=== PATIENT | female | born 1995 | race American Indian/Alaskan Native ===

== ENCOUNTER 2016-07-24 20:16 | Outpatient (CLI) | payer MEDICAID ==
[2016-07-24 20:37] VITALS: BP 134/86
[2016-07-24] MEDS ORDERED: LACTATED RINGERS 1,000 ML IV ONE (20:43)
[2016-07-24 21:48] LABS: Bilirubin,Urine NEG (Negative); Blood,Urine NEG (Negative); Ketones,Urine NEG (Negative); Leukocyte Esterase,Urine NEG (Negative); Mucus,Urine 3+ /HPF; Nitrite,Urine NEG (Negative); Protein,Urine <15 mg/dL mg/dL (Negative); Urobilinogen,Urine < 2.0 mg/dL (<2.0); WBC,Urine < 1.0 /HPF (0.0-6.0)
[2016-07-24] MEDS: BRETHINE SUB-Q SCH ×3 (22:15→23:15)
--- NOTE | 2016-07-25 07:28 | Ultrasound Report ---
OB LIMITED History: Abdominal pain after fall, evaluate for abruption. Technique: Transabdominal ultrasound with Doppler interrogation. Gestation: Single Placenta: Anterior Placental Grade: 1 Heart Rate: 121 BPM Comment: There is no evidence for abruption.
== END 2016-07-24 23:45 | disposition home or self-care (01) ==
LOC: TRG 20:16
PROVIDERS: ATTEND Obstetrics & Gynecology
DX: O26.899 Other specified pregnancy related conditions, unspecified trimester (principal); R10.9 Unspecified abdominal pain; O47.9 False labor, unspecified; Z91.81 History of falling; Z3A.00 Weeks of gestation of pregnancy not specified
CPT/HCPCS: 76815; 81001; J3105; J7120; 96360; 96372

== ENCOUNTER 2016-09-01 17:37 | Outpatient (CLI) | payer MEDICAID ==
[2016-09-01 17:59] VITALS: BP 108/64
[2016-09-01 18:40] LABS: Bilirubin,Urine NEG (Negative); Blood,Urine SM (Negative); Ketones,Urine NEG (Negative); Leukocyte Esterase,Urine NEG (Negative); Mucus,Urine FEW /HPF; Nitrite,Urine NEG (Negative); Protein,Urine <15 mg/dL mg/dL (Negative); Urobilinogen,Urine < 2.0 mg/dL (<2.0)
[2016-09-01] MEDS ORDERED: LACTATED RINGERS 1,000 ML IV SCH (19:00)
[2016-09-01] MEDS ORDERED: LACTATED RINGERS 500 ML IV ONE (19:00)
[2016-09-01] MEDS ORDERED: BRETHINE SUB-Q ONE (20:22)
--- NOTE | 2016-09-03 13:21 | Ultrasound Report ---
BIOPHYSICAL PROFILE: Technique: Transabdominal ultrasound with Doppler interrogation. 2 - breathing movements 2 - movements 2 - posture and tone 2 - Qualitative amniotic fluid volume 8 - TOTAL SCORE OF POSSIBLE 8 Heart Rate (bpm) 126
--- NOTE | 2016-09-03 13:22 | Ultrasound Report ---
OB LIMITED Technique: Transabdominal ultrasound with Doppler interrogation. Gestation: Single Position: Cephalic Placenta: Anterior Placental Grade: 0 Heart Rate: 126 BPM Cervical length: 2.8 cm (Normal > 3 cm)
== END 2016-09-01 21:00 | disposition home or self-care (01) ==
LOC: TRG 17:37
PROVIDERS: ATTEND Obstetrics & Gynecology
DX: O47.03 False labor before 37 completed weeks of gestation, third trimester (principal); Z3A.33 33 weeks gestation of pregnancy
CPT/HCPCS: 36415; 76815; 76819; 81001; 82731; 87086; 96360; 96361; 96372; J3105; J7120

== ENCOUNTER 2016-09-27 11:31 | Outpatient (CLI) | payer MEDICAID ==
[2016-09-27 11:46] VITALS: BP 104/68
== END 2016-09-27 12:23 | disposition home or self-care (01) ==
LOC: TRG 11:31
PROVIDERS: ATTEND Obstetrics & Gynecology
DX: O47.1 False labor at or after 37 completed weeks of gestation (principal); Z3A.37 37 weeks gestation of pregnancy

== ENCOUNTER 2016-10-01 21:02 | Outpatient (CLI) | payer MEDICAID ==
[2016-10-01 21:35] VITALS: BP 113/75
[2016-10-01] MEDS ORDERED: LACTATED RINGERS 1,000 ML IV ONE (21:49)
[2016-10-01 23:01] LABS: Bacteria,Urine 1+ /HPF (Negative); Bilirubin,Urine NEG (Negative); Blood,Urine NEG (Negative); Ketones,Urine NEG (Negative); Leukocyte Esterase,Urine TR (Negative); Mucus,Urine FEW /HPF; Nitrite,Urine NEG (Negative); Protein,Urine <15 mg/dL mg/dL (Negative); Urobilinogen,Urine < 2.0 mg/dL (<2.0); WBC,Urine < 1.0 /HPF (0.0-6.0)
[2016-10-02] MEDS ORDERED: VISTARIL PO ONE (00:15)
== END 2016-10-02 01:05 | disposition home or self-care (01) ==
LOC: TRG 21:02
PROVIDERS: ATTEND Obstetrics & Gynecology
DX: O47.1 False labor at or after 37 completed weeks of gestation (principal); Z3A.37 37 weeks gestation of pregnancy
CPT/HCPCS: 81001; 96360; J7120; Q0177

== ENCOUNTER 2016-10-02 12:43 | Inpatient (IN) | payer MEDICAID ==
[2016-10-02] MEDS ORDERED: LACTATED RINGERS 1,000 ML ONE (13:25)
--- NOTE | 2016-10-02 13:37 | History and Physical Report ---
History of Present Illness Date of examination: 10/02/16 Date of admission: 10/02/16 12:43 Chief complaint: Oligohydramnios, SHREYA 4.4 today History of present illness: 21yo at 38 weeks presents as a direct admission for oligohydramnios with SHREYA of 4.4 today and a BPP of 6/8. Pt is a [employer] since she transferred in at 21.4 weeks. COurse complicated by an abnormal 1 hr gtt of 156 followed by a 3 hr test that was WNL. She also has mild, asymptomatic anemia of 10.6. Past History Past Medical History: other (anxiety and depression) Past Surgical History: no surgical history [employer] SOFTWARE [employer] History: chlamydia Family/Genetic History: diabetes, other (Hyperthyroidism, Physchiatric disorder and Obesity) Social history: single. denies: smoking, alcohol abuse, prescription drug abuse , IV drug use - Obstetrical History Expected Date of Delivery: 10/16/16 Actual Gestation: 38 Week(s) 0 Day(s) : 2 Para: 1 Hx # Term Pregnancies: 1 Number of Pregnancies: 0 Spontaneous Abortions: 0 Induced : 0 Number of Living Children: 1 #1 Gender: Male year: 0[birth year] Birthweight: 6 lb 9 oz Method of Delivery: Vaginal Gestational age at delivery: 39 Complications: none Medications and Allergies Allergies Allergy/AdvReac Type Severity Reaction Status Date / Time No Known Allergies Allergy Verified 09/01/16 18:03 Home Medications Medication Instructions Recorded Confirmed Last Taken Type No Known Home Medications [No 09/01/16 10/01/16 Unknown History Reported Home Medications] Review of Systems All systems: negative - Vital Signs Vital signs: Vital Signs Pulse BP 105 H 122/76 10/02/16 13:13 10/02/16 13:13 Temp Pulse Resp BP Pulse Ox 105 H 122/76 10/02/16 13:13 10/02/16 13:13 - Physical Exam Cardiovascular: Regular rate Lungs: Positive: Normal air movement Vagina: Positive: normal moisture Extremities: Positive: normal Deep Tendon Reflex Grade: Normal +2 - Obstetrical FHR: category 1 FHR comments: FHR 125 Uterine Contraction Monitor Mode: External Cervical Dilatation: 3 (in office) Cervical Effacement Percentage: 70 station: -2 Uterine Contraction Pattern: Regular Uterine Tone Measurement Phase: Resting Uterine Contraction Intensity: Moderate Results All other labs normal. Assessment and Plan A: 21yo at 38 weeks Oligohydramnios, SHREYA 4.4 BPP 6/8 Category 1 FHT GBS negative P: Admit to L&D of IOL Continuous monitoring Start pitocin induction Epidural /pain medication as desired
[2016-10-02] MEDS ORDERED: BRETHINE IVP PRN (13:42)
[2016-10-02] MEDS ORDERED: MINERAL OIL PO PRN (13:42)
[2016-10-02] MEDS ORDERED: PHENERGAN PO PRN ×2 (13:42→17:39)
[2016-10-02] MEDS ORDERED: XYLOCAINE 2% INFILTRATI ONE (13:42)
[2016-10-02] MEDS ORDERED: SUBLIMAZE IV PRN (13:42)
[2016-10-02] MEDS ORDERED: ZOFRAN IV PRN ×2 (13:42→17:39)
[2016-10-02] MEDS ORDERED: ePHEDrine SULFATE IV PRN (13:42)
[2016-10-02] MEDS ORDERED: BRETHINE SUB-Q PRN (13:42)
[2016-10-02] MEDS ORDERED: STADOL IV PRN (13:42)
[2016-10-02] MEDS ORDERED: PITOCin/NS 30 UNIT/500ML 30 UNITS/500 ML BAG IV SCH ×2 (14:00)
[2016-10-02] MEDS ORDERED: PITOCin/NS 20 UNIT/1000ML DRIP 20 UNITS/1,000 ML BAG IV SCH ×2 (14:00→18:00)
[2016-10-02] MEDS ORDERED: LACTATED RINGERS 1,000 ML IV SCH (14:00)
[2016-10-02 14:30] LABS: Hematocrit 31.7 % (30.3-42.9); Hemoglobin 10.7 gm/dl (10.1-14.3); Mean Corpuscular HGB Conc 34 % (30-34); Mean Corpuscular Hemoglobin 28 pg (28-32); Mean Corpuscular Volume 83 fl (79-97); Platelet Count 275 K/mm3 (140-440); Red Blood Count 3.83 M/mm3 (3.65-5.03); White Blood Count 8.8 K/mm3 (4.5-11.0)
--- NOTE | 2016-10-02 17:36 | Procedure Note ---
OB Delivery Note - Delivery Date of Delivery: 10/02/16 Surgeon: DEBBI GONZALES Estimated blood loss: 100cc - Vaginal Delivery presentation: vertex Delivery position: OA Intrapartum events: hydramnios Delivery induction: oxytocin Delivery augmentation: pitocin Delivery monitor: external FHT, external uterine Route of delivery: Delivery placenta: spontaneous Delivery cord: nuchal cord (x1) Delivery laceration: none Anesthesia: none Delivery comments: Cord cut on by Mom after 2 mins of [id number] and spontaneous delivery of placenta. - A at 1 minute: 8 at 5 minutes: 9 Infant Gender: Male (2492gms)
[2016-10-02] MEDS ORDERED: BENADRYL PO PRN (17:39)
[2016-10-02] MEDS ORDERED: DERMOPLAST TP PRN (17:39)
[2016-10-02] MEDS ORDERED: DULCOLAX PR PRN (17:39)
[2016-10-02] MEDS ORDERED: TYLENOL PO PRN (17:39)
[2016-10-02] MEDS ORDERED: LANSINOH TP PRN (17:39)
[2016-10-02] MEDS ORDERED: PHENERGAN PR PRN (17:39)
[2016-10-02] MEDS ORDERED: TUCKS PAD TP PRN (17:39)
[2016-10-02] MEDS ORDERED: MILK OF MAGNESIA PO PRN (17:39)
[2016-10-02] MEDS ORDERED: SODIUM CHLORIDE FLUSH SYRINGE 10 ML IV SCH (18:00)
[2016-10-02] MEDS: NORCO 5/325 PO PRN (18:53)
[2016-10-02] MEDS: MOTRIN PO SCH (20:50)
[2016-10-02] MEDS: FEOSOL PO SCH (22:00)
[2016-10-02] MEDS: COLACE PO SCH (22:00)
[2016-10-03] MEDS: NORCO 5/325 PO PRN ×3 (01:38→18:15)
[2016-10-03] MEDS: MOTRIN PO SCH ×2 (05:35→18:15)
[2016-10-03] MEDS ORDERED: BOOSTRIX IM ONE (06:00)
[2016-10-03 06:13] LABS: Hematocrit 30.9 % (30.3-42.9); Hemoglobin 10.2 gm/dl (10.1-14.3)
[2016-10-03] MEDS ORDERED: PRENATAL VITAMIN PO SCH (10:00)
[2016-10-03] MEDS: COLACE PO SCH ×2 (10:47→22:00)
[2016-10-03] MEDS: FEOSOL PO SCH ×2 (10:48→22:00)
--- NOTE | 2016-10-03 11:20 | Progress Note ---
Assessment and Plan A: PPD 1 Stable, VSS Asymptomatic anemia P: D/c today Continue PNV and Iron supplementation Plans for Nexplanon Subjective - Subjective Date of service: 10/03/16 Principal diagnosis: PPD1 Interval history: 21yo at 38 weeks presents as a direct admission for oligohydramnios with SHREYA of 4.4 today and a BPP of 6/8. Pt is a [employer] since she transferred in at 21.4 weeks. COurse complicated by an abnormal 1 hr gtt of 156 followed by a 3 hr test that was WNL. She also has mild, asymptomatic anemia of 10.6. Patient reports: appetite normal, voiding normally, pain well controlled, ambulating normally : doing well Objective - Vital Signs Latest vital signs: Vital Signs Temp Pulse Pulse Resp BP BP Pulse Ox 10/03/16 08:20 98.2 F 81 20 115/78 10/03/16 04:45 97.9 F 71 20 108/75 10/03/16 00:54 98.1 F 93 H 20 104/63 10/02/16 18:53 20 10/02/16 18:42 79 138/87 10/02/16 18:40 84 136/83 10/02/16 18:27 81 134/95 10/02/16 18:25 77 138/90 10/02/16 18:23 75 140/97 10/02/16 17:43 96 H 142/75 10/02/16 17:28 99 H 126/77 10/02/16 17:02 93 H 96 10/02/16 16:57 74 93 10/02/16 16:56 86 93 10/02/16 16:33 75 126/78 10/02/16 15:41 92 H 111/69 10/02/16 14:18 98.1 F 16 110/70 10/02/16 13:13 105 H 122/76 Intake and Output 10/02/16 10/03/16 10/03/16 22:59 06:59 14:59 Intake Total 610 245 240 Output Total 1600 Balance 610 -1355 240 Intake: IV 250 125 PITOCin/NS 20 UNIT/1000ML 250 125 DRIP 20 units In 1,000 ml @ 250 mls/hr IV DIRECT DERRICK Rx#:[id number] Oral 240 Intake, Free Water 360 120 Output: Urine 1600 Void 1600 Other: Total, Intake Amount 240 Total, Output Amount 700 # Voids Void 1 Estimated Blood Loss 400 - Exam Cardiovascular: Present: Regular rate Lungs: Present: Normal air movement Vulva: both: normal (scant lochia) Uterus: Present: fundal height below umbilicus Extremities: Present: normal
--- NOTE | 2016-10-03 11:22 | Discharge Summary ---
Providers - Providers Date of Admission: 10/02/16 12:43 Date of discharge: 10/03/16 Attending physician: DEBBI SCHULTZ MD Primary care physician: DEBBI SCHULTZ MD Hospitalization Delivery: Laceration: none Discharge diagnosis: IUP at term delivered baby: male Hospital course: uneventful Condition at discharge: Good Disposition: DISCHARGED TO HOME OR SELFCARE Plan - Provider Discharge Summary Activity: routine, no sex for 6 weeks, no heavy lifting 4 weeks, no strenuous exercise Diet: routine Instructions: routine Additional instructions: [] Smoking cessation referral if applicable(refer to patient education folder for contact #) [] Refer to [facility]'s [facility] Booklet Call your doctor immediately for: * Fever > 100.5 * Heavy vaginal bleeding ( >1 pad per hour) * Severe persistent headache * Shortness of breath * Reddened, hot, painful area to leg or breast * Drainage or odor from incision. * Keep incision clean and dry at all times and follow doctor's instructions regarding bathing/showering - Follow up plan Follow up: [facility] [Provider Group] - 6 Weeks
[2016-10-03] MEDS ORDERED: FLUARIX QUAD 2016-2017(36 MOS+) IM ONE (12:00)
[2016-10-03] MEDS ORDERED: M-M-R II VACCINE SUB-Q ONE (17:39)
[2016-10-04] MEDS: MOTRIN PO SCH ×2 (05:47)
[2016-10-04 12:53] VITALS: BP 111/69
== END 2016-10-04 13:00 | disposition home or self-care (01) | DRG 775 ==
LOC: LD 12:43 → OB 19:21
PROVIDERS: ADMIT Obstetrics & Gynecology; ATTEND Obstetrics & Gynecology
PROC: 10E0XZZ Delivery of Products of Conception, External Approach (ICD-10-PCS; principal; 2016-10-02)
PROC: 3E033VJ Introduction of Other Hormone into Peripheral Vein, Percutaneous Approach (ICD-10-PCS; principal; 2016-10-02)
DX: O41.03X0 Oligohydramnios, third trimester, not applicable or unspecified (principal); Z3A.38 38 weeks gestation of pregnancy; Z37.0 Single live birth; Z83.3 Family history of diabetes mellitus; F41.9 Anxiety disorder, unspecified; O99.344 Other mental disorders complicating childbirth; O99.02 Anemia complicating childbirth; O69.81X0 Labor and delivery complicated by cord around neck, without compression, not applicable or unspecified; O99.810 Abnormal glucose complicating pregnancy
CPT/HCPCS: 36415; 85014; 85018; 85027; 86850; 86900; 86901; 90471; 90686; 90715; 99211; G0463; J0595; J2590; J7120